=== PATIENT | female | born 1985 | race Caucasian/White ===

== ENCOUNTER 2021-02-25 10:22 | Observation (INO) ==
--- NOTE | 2021-02-25 10:58 | Emergency Department Note ---
Impression & Plan Acute appendicitis ED Provider Note CHIEF COMPLAINT: Right lower abdominal pain HISTORY OF PRESENTING ILLNESS: This is a 35-year-old female who presents to the emergency department by private vehicle with complaint of right lower abdominal pain that started this morning about 5:30 AM and woke her up from sleep. She states that the pain is crampy, constant, worse with certain movements and positions and better with rest, and she rates the pain 5/10. She has had some associated nausea but no vomiting. She denies any fevers or chills. She has had no appetite today. She does note that she recently had an ultrasound a few weeks ago and was told that she had some small cysts on her ovaries. She also recently had a surgery with biopsies on one of her ovaries. She is scheduled in 2 weeks to have an endometrial ablation. She denies any abnormal vaginal bleeding or discharge currently. She denies any urinary symptoms. She denies any diarrhea and had a normal bowel movement this morning but did feel slightly constipated. REVIEW OF SYSTEMS: A complete 10 point review of systems was reviewed with the patient with pertinent positives and negatives as per history of present ill ness. All else were negative. PAST MEDICAL HISTORY: History of wisdom tooth extraction and tonsillectomy SOCIAL HISTORY: Lives at home, she denies tobacco use ALLERGIES: No known allergies PHYSICAL EXAM: CONSTITUTIONAL: Pleasant and cooperative. Nontoxic-appearing and in no acute distress. Well appearing and well nourished. HEENT: Normocephalic, atraumatic. NECK: Supple, full active range of motion without discomfort. RESPIRATORY: Clear to auscultation bilaterally with no wheezing, crackles, rhonchi or stridor. Equal expansion bilaterally. CARDIOVASCULAR: Regular rate and rhythm with no murmurs, rubs or gallops. Normal peripheral perfusion. No edema. GASTROINTESTINAL: Tender to palpation in the right mid to lower abdomen, with slight guarding. No rebound tenderness. The remainder of the abdomen is nontender, soft and nondistended. No palpable masses or HSM. Bowel sounds present in all quadrants. No CVA tenderness bilaterally. MUSCULOSKELETAL: Full range of motion of all joints without discomfort. INTEGUMENTARY: No rash or other significant dermatologic conditions noted. NEUROLOGIC: Alert and oriented X 4 with normal affect. Normal strength and sensation in all 4 extremities. Normal speech. Normal gait observed. ED COURSE AND MEDICAL DECISION MAKING: CC: Patient presenting with complaint of right abdominal pain DIFFERENTIAL DIAGNOSIS: Includes, but not limited to ovarian cyst, ovarian torsion, ectopic , appendicitis, mesenteric adenitis, infections, diverticulitis, UTI, small bowel obstruction, mesenteric ischemia, inflammatory bowel disease, renal colic, hernia, volvulus, constipation, as well as other pathologies. INTERPRETATION OF LABS: Leukocytosis, no anemia, normal platelets, no significant electrolyte abnormalities, normal renal function, elevated T bili with otherwise normal liver enzymes and lipase. UA negative. Urine negative. MEDICATION RECONCILIATION: I attest that I have personally reviewed the patient's current medication list. INITIAL VITAL SIGNS REVIEW: I reviewed the patient's initial vital signs and in terpret them as follows: T: Afebrile; BP: Normotensive; HR: Within normal limits; RR: Within normal limits; Pulse Ox: Within normal limits on room air. MDM SUMMARY: Patient was evaluated at bedside, history and physical exam performed. Patient is alert and oriented, in no acute distress, resting calmly in stretcher. She is afebrile and nontoxic-appearing, and does not appear to be significantly dehydrated clinically. Abdomen is tender to palpation in the right lower quadrant with slight guarding, but no acute abdomen. She complains of some nausea but is not actively vomiting. Patient does note that she has been having some ovarian issues recently, records were requested and reviewed, however no recent visits were found. Given the patient's report of ovarian cyst, I did feel that it was reasonable to perform a repeat ultrasound to rule out ovarian torsion. Orders were placed for labs, UA and urine , IV fluid bolus for hydration as precaution, pelvic ultrasound to evaluate for abdominal pain. Patient discussed with Dr. Chen, who agrees with my assessment, plan, and disposition. Labs and imaging reviewed as above, labs notable for leukocytosis and elevated T bili, otherwise fairly unremarkable. Urine negative. Ultrasound was reviewed and did not demonstrate any abnormalities. The patient had persistent tenderness on reassessment, therefore CT imaging was ordered. This was reviewed and did demonstrate evidence of acute appendicitis. I spoke on the phone with Talita Brand PA-C with general surgery, who agrees to evaluate the patient for probable OR later today. The patient was updated on her results and the plan for surgery, all questions were answered to the best of my ability and she was agreeable to this plan. Patient did request something for pain at this time and was provided with IV morphine and Zofran for pain and nausea. She was stable at time of admission to the OR. The chart was completed utilizing [employer] voice recognition software. Grammatical errors, random word insertions, pronoun errors, and incomplete se ntences are an occasional consequence of this system due to software limitations, ambient noise, and hardware issues. Any formal questions or concerns about the content, text, or information contained within the body of this dictation should be directly addressed to the nurse practitioner for vitaliy courtney. Past Med/Surg History Medical History (Updated 02/25/21 @ 16:43 by URVASHI Gonzales) No significant medical problems Surgical History H/O wisdom tooth extraction History of placement of ear tubes Hx of tonsillectomy Social History Smoking Status: Never smoker Do You Dip or Chew Tobacco: No; Hx Alcohol Use: No Hx Substance Use: No Feels Safe at Home: Yes Allergies Allergies Allergy/AdvReac Type Severity Reaction Status Date / Time No Known Allergies Allergy Unverified 02/25/21 11:28 Home Meds Home Medications Medication Instructions Recorded Confirmed [id number] 18 1 tab PO QAM 02/25/21 02/25/21 mg-FA 400 mcg-vit K 25 mcg tablet (One-A-Day Women[facility] Complete) Results & Data (ED) Vital Signs Vital Signs - 24 hr 02/25/21 10:31 02/25/21 11:08 02/25/21 12:01 Temperature 37.2 C Temperature Source Oral Pulse Rate 96 H 74 75 Pulse Rate [Left Finger] Pulse Rate from SpO2 Sensor 76 Respiratory Rate 20 20 17 Respiratory Effort / Characteristics Non-Labored Spontaneous Respiratory Depth Normal Respiratory Pattern Regular Blood Pressure 103/69 Blood Pressure [Left Arm] Blood Pressure Mean 80 Blood Pressure Mean [Left Arm] Pulse Oximetry 100 100 Oxygen Delivery Method Room Air Sepsis Recent Fever Within 48 Hours No Sepsis New/Unexplained Change in Mental Status N/A Sepsis Action Taken by Nursing No Action Required 02/25/21 13:32 02/25/21 14:00 02/25/21 14:30 Temperature Temperature Source Pulse Rate 84 73 71 Pulse Rate [Left Finger] Pulse Rate from SpO2 Sensor Respiratory Rate 18 22 16 Respiratory Effort / Characteristics Respiratory Depth Respiratory Pattern Blood Pressure 96/65 L 89/63 L Blood Pressure [Left Arm] Blood Pressure Mean 75 71 Blood Pressure Mean [Left Arm] Pulse Oximetry Oxygen Delivery Method Sepsis Recent Fever Within 48 Hours Sepsis New/Unexplained Change in Mental Status Sepsis Action Taken by Nursing 02/25/21 15:29 Temperature 36.7 C Temperature Source Oral Pulse Rate Pulse Rate [Left Finger] 74 Pulse Rate from SpO2 Sensor Respiratory Rate 16 Respiratory Effort / Characteristics Respiratory Depth Normal Respiratory Pattern Blood Pressure Blood Pressure [Left Arm] 94/54 L Blood Pressure Mean Blood Pressure Mean [Left Arm] 67 Pulse Oximetry 97 Oxygen Delivery Method Sepsis Recent Fever Within 48 Hours Sepsis New/Unexplained Change in Mental Status Sepsis Action Taken by Nursing Laboratory Data Result diagrams: 02/25/21 11:04 02/25/21 11:04 Lab Results 02/25/21 02/25/21 02/25/21 Range/Units 11:04 11:04 11:04 WBC 14.06 H (4.8-10.8) K/uL RBC 4.27 (4.2-5.4) M/uL Hgb 12.7 (12.0-16.0) g/dL Hct 38.3 (37-47) % MCV 89.7 (80-100) fL MCH 29.7 (25-34) pg MCHC 33.2 (32-36) g/dL RDW Std Deviation 43.1 (36.4-46.3) fL RDW Coeff of Wilma 13.3 (11.5-14.5) % Plt Count 258 (130-400) K/uL MPV 9.5 (7.4-10.4) fL Immature Gran % (Auto) 0.2 % Neut % (Auto) 81.6 % Lymph % (Auto) 11.8 % Haines % (Auto) 5.9 % Eos % (Auto) 0.4 % Baso % (Auto) 0.1 % Neut # (Auto) 11.47 H (1.4-6.5) K/uL Lymph # (Auto) 1.66 (1.2-3.4) K/uL Haines # (Auto) 0.83 H (0.11-0.59) K/uL Eos # (Auto) 0.06 (0-0.5) K/uL Baso # (Auto) 0.01 (0-0.2) K/uL Immature Gran # (Auto) 0.03 H (0.00-0.02) K/uL Sodium 140 (136-145) mmol/L Potassium 3.5 (3.5-5.1) mmol/L Chloride 106 (98-107) mmol/L Carbon Dioxide 28 (21-32) mmol/L Anion Gap 6.0 (3-11) BUN 11 (7-18) mg/dl Creatinine 0.70 (0.6-1.2) mg/dl Est Cr Clr Drug Dosing 94.4 ml/min Est GFR ( Amer) 131.9 ml/min Est GFR (Non-Af Amer) 113.8 ml/min BUN/Creatinine Ratio 15.5 (10-20) Glucose 81 (70-99) mg/dl Calcium 8.9 (8.5-10.1) mg/dl Total Bilirubin 1.6 H (0.2-1) mg/dl AST 14 L (15-37) U/L ALT 24 (12-78) U/L Alkaline Phosphatase 54 (45-117) U/L Total Protein 7.9 (6.4-8.2) gm/dl Albumin 4.2 (3.4-5.0) gm/dl Globulin 3.7 (2.5-4.0) gm/dl Albumin/Globulin Ratio 1.1 (0.9-2) Lipase 74 (73-393) U/L Urine Color [place] Urine Appearance Clear (Clear) Urine pH 7.0 (4.5-7.5) Ur Specific [place] 1.008 (1.000-1.030) Urine Protein Negative (Negative) Urine Glucose (UA) Negative (Negative) Urine Ketones Negative (Negative) Urine Blood Negative (Negative) Urine Nitrite Negative (Negative) Urine Bilirubin Negative (Negative) Urine Urobilinogen Negative (Negative) Ur Leukocyte Esterase Negative (Negative) POC Ur Test (NEG) COVID-19 Eval Order SARS-CoV-2 (PCR) (Negative) 02/25/21 02/25/21 02/25/21 Range/Units 11:04 13:35 13:35 WBC (4.8-10.8) K/uL RBC (4.2-5.4) M/uL Hgb (12.0-16.0) g/dL Hct (37-47) % MCV (80-100) fL MCH (25-34) pg MCHC (32-36) g/dL RDW Std Deviation (36.4-46.3) fL RDW Coeff of Wilma (11.5-14.5) % Plt Count (130-400) K/uL MPV (7.4-10.4) fL Immature Gran % (Auto) % Neut % (Auto) % Lymph % (Auto) % Haines % (Auto) % Eos % (Auto) % Baso % (Auto) % Neut # (Auto) (1.4-6.5) K/uL Lymph # (Auto) (1.2-3.4) K/uL Haines # (Auto) (0.11-0.59) K/uL Eos # (Auto) (0-0.5) K/uL Baso # (Auto) (0-0.2) K/uL Immature Gran # (Auto) (0.00-0.02) K/uL Sodium (136-145) mmol/L Potassium (3.5-5.1) mmol/L Chloride (98-107) mmol/L Carbon Dioxide (21-32) mmol/L Anion Gap (3-11) BUN (7-18) mg/dl Creatinine (0.6-1.2) mg/dl Est Cr Clr Drug Dosing ml/min Est GFR ( Amer) ml/min Est GFR (Non-Af Amer) ml/min BUN/Creatinine Ratio (10-20) Glucose (70-99) mg/dl Calcium (8.5-10.1) mg/dl Total Bilirubin (0.2-1) mg/dl AST (15-37) U/L ALT (12-78) U/L Alkaline Phosphatase (45-117) U/L Total Protein (6.4-8.2) gm/dl Albumin (3.4-5.0) gm/dl Globulin (2.5-4.0) gm/dl Albumin/Globulin Ratio (0.9-2) Lipase (73-393) U/L Urine Color Urine Appearance (Clear) Urine pH (4.5-7.5) Ur Specific [place] (1.000-1.030) Urine Protein (Negative) Urine Glucose (UA) (Negative) Urine Ketones (Negative) Urine Blood (Negative) Urine Nitrite (Negative) Urine Bilirubin (Negative) Urine Urobilinogen (Negative) Ur Leukocyte Esterase (Negative) POC Ur Test NEG (NEG) COVID-19 Eval Order Covid19 at [facility] SARS-CoV-2 (PCR) NEGATIVE (Negative) Administered Medications Discontinued Medications Bacitracin (Bacitracin Oint 15 Gm Tube) Confirm Administered Dose 45 appln .ROUTE .STK-MED ONE Stop: 02/25/21 15:25 Last Admin: 02/25/21 16:37 Dose: 1 appln Documented by: Bupivacaine HCl (Bupivacaine 0.5 % 5 Mg/1 Ml Mpf 30ml Vial) Confirm Administered Dose 30 ml .ROUTE .STK-MED ONE Stop: 02/25/21 15:26 Last Admin: 02/25/21 16:37 Dose: 12 ml Documented by: Sodium Chloride (Nss 1000ml) 1,000 mls @ 999 mls/hr IV .Q1H1M STA Stop: 02/25/21 12:07 Last Infusion: 02/25/21 12:24 Dose: 0 mls/hr Documented by: [id number] Admin: 02/25/21 11:24 Dose: 999 mls/hr Documented by: [id number] Ioversol (Optiray 320 100ml) 95 ml IV ONCE ONE Stop: 02/25/21 12:19 Last Admin: 02/25/21 12:18 Dose: 95 ml Documented by: [id number] Lidocaine HCl (Lidocaine 1% Local 20 Ml Vial) Confirm Administered Dose 20 ml .ROUTE .STK-MED ONE Stop: 02/25/21 15:26 Last Admin: 02/25/21 16:35 Dose: 12 ml Documented by: Morphine Sulfate (Morphine Sulfate 4 Mg/Ml 1 Ml Carp\Vial) 4 mg IV NOW STA Stop: 02/25/21 13:31 Last Admin: 02/25/21 13:35 Dose: 4 mg Documented by: [id number] Ondansetron HCl (Ondansetron Inj 2 Mg/Ml 2 Ml Vial) 4 mg IV NOW STA Stop: 02/25/21 13:31 Last Admin: 02/25/21 13:35 Dose: 4 mg Documented by: [id number] Imaging Data Radiologist's Impression: Pelvis Ultrasound 02/25/21 11:07 ULTRASOUND OF THE PELVIS CLINICAL HISTORY: Right pelvic pain. COMPARISON STUDY: No priors. TECHNIQUE: Real-time, grayscale, and color flow sonography of the pelvis is performed transabdominally. Images are reviewed in the transverse and longitudinal planes. The endovaginal examination was deferred. FINDINGS: Uterus: The uterus is normal in size and echotexture, measuring 7.5 x 4.3 x 4.6 cm. Endometrium: The endometrium is normal in appearance, and the endometrial stripe is normal in thickness measuring up to 0.3 cm. Ovaries: The ovaries are normal in size and morphology. The right ovary measures 2.7 x 2.3 x 3.7 cm and the left ovary measures 2.1 x 1.5 x 1.9 cm. There are small bilateral ovarian follicles. A complex follicle in the right ovary measures up to 2.7 cm. Normal Doppler waveforms are shown within both ovaries. Pelvis: There is no free fluid in the cul-de-sac. No concerning adnexal lesion is seen. IMPRESSION: Unremarkable transabdominal sonographic assessment of the pelvis. ACT 112: Negative or not required by law. Electronically signed by: Domenico Eller M.D. 02/25/2021 11:58 AM Abdomen/Pelvis CT 02/25/21 12:09 CT SCAN OF THE ABDOMEN AND PELVIS WITH IV CONTRAST CLINICAL HISTORY: Right lower quadrant abdominal pain. Nausea and dizziness. COMPARISON STUDY: Pelvic ultrasound dated 02/25/2021. TECHNIQUE: Following the IV administration of 95 cc of Optiray 320, CT scan of the abdomen and pelvis is performed from the lung bases to the proximal femora. Images are reviewed in the axial, sagittal, and coronal planes. IV contrast was administered without complication. A dose lowering technique was utilized adhering to the principles of ALARA. CT DOSE: 261.50 mGy.cm FINDINGS: Lung bases: The heart is normal in size and without pericardial effusion. The lung bases are clear. Liver: The contrast-enhanced liver is normal in size, contour, and attenuation. There is no intrahepatic biliary ductal dilatation. The hepatic veins and portal veins are patent. Mild periportal edema is noted and likely related to hydration status. Gallbladder: Unremarkable. Spleen: Normal in size and attenuation. Pancreas: Unremarkable. Adrenal glands: Unremarkable. Kidneys: The contrast enhanced kidneys are normal in size and without hydronephrosis. The kidneys enhance symmetrically. Abdominal vasculature: The abdominal aorta is normal in course and caliber. Bowel: Mild fecal retention is seen throughout the colon. There is no bowel obstruction. The cecum is located in the right mid abdomen below the liver. The appendix is located immediately lateral to and below the right kidney, best seen on axial image #206. The appendix is mildly dilated measuring up to 7.5 mm. The appendiceal wall is thickened and hyperemic and there is mild surrounding infiltration. Findings are consistent with mild acute appendicitis. No organized fluid collection is seen to indicate abscess. Peritoneum: There is no intraperitoneal free air or abdominal ascites. Lymphadenopathy: None. Pelvic viscera: The bladder is distended but otherwise normal in appearance. The uterus and adnexa are normal as visualized noting bilateral ovarian follicles. Skeletal structures: No lytic or blastic lesions are seen. IMPRESSION: 1. Findings are consistent with mild acute appendicitis. Note that the cecum is located in the right mid abdomen, with the appendix seen immediately lateral to and below the right kidney. 2. There is no evidence of abscess or perforation. ACT 112: Negative or not required by law. Electronically signed by: Domenico Eller M.D. 02/25/2021 12:33 PM Discharge Plan Visit Data Chief Complaint: Abdominal Pain Stated Complaint: STOMACH PAIN, NAUSEOUS ED Provider: Vera Chen ED Midlevel Provider: Jaimee Matt Discharge Problem: Acute appendicitis Patient Disposition: Admitted As Inpatient Condition: Good Discharge Instructions Interventions: ED Discharge Assessment Last Done: 02/25/21 14:41 Discharge Problem: Acute appendicitis Qualifiers: Acute appendicitis type: with localized peritonitis Appendicitis gangrene presence: without gangrene Appendicitis perforation presence: without perforation Appendicitis abscess presence: without abscess Qualified Code(s): K35.30 - Acute appendicitis with localized peritonitis, without perforation or gangrene
[2021-02-25] MEDS ORDERED: SODIUM CHLORIDE 0.9% 1000ML 1,000 ML IV STA (11:07)
[2021-02-25 11:25] LABS: Basophils # (auto) 0.01 K/uL (0-0.2); Basophils % (auto) 0.1 %; Eosinophils # (auto) 0.06 K/uL (0-0.5); Eosinophils % (auto) 0.4 %; Hematocrit (blood only) 38.3 % (37-47); Hemoglobin 12.7 g/dL (12.0-16.0); Immature Granulocytes # (auto) 0.03 K/uL (0.00-0.02); Immature Granulocytes % (auto) 0.2 %; Lymphocytes # (auto) 1.66 K/uL (1.2-3.4); Lymphocytes % (auto) 11.8 %; Mean Corpuscular Hemoglobin 29.7 pg (25-34); Mean Corpuscular Hgb Conc 33.2 g/dL (32-36); Mean Corpuscular Volume 89.7 fL (80-100); Mean Platelet Volume 9.5 fL (7.4-10.4); Monocytes # (auto) 0.83 K/uL (0.11-0.59); Monocytes % (auto) 5.9 %; Neutrophils # (auto) 11.47 K/uL (1.4-6.5); Neutrophils % (auto) 81.6 %; Platelet Count 258 K/uL (130-400); RDW Coefficient of Variation 13.3 % (11.5-14.5); RDW Standard Deviation 43.1 fL (36.4-46.3); Red Blood Count 4.27 M/uL (4.2-5.4); White Blood Count 14.06 K/uL (4.8-10.8)
[2021-02-25 11:26] LABS: Appearance Urine Clear (Clear); Bilirubin Urine Negative (Negative); Blood Urine Negative (Negative); Color Urine Orange; Glucose Urine UA Negative (Negative); Ketones Urine Negative (Negative); Leukocyte Esterase Urine Negative (Negative); Nitrite Urine Negative (Negative); Protein Urine Negative (Negative); Specific Gravity Urine 1.008 (1.000-1.030); Urobilinogen Urine Negative (Negative)
[2021-02-25 11:44] LABS: Albumin Level 4.2 gm/dl (3.4-5.0); BUN Creatinine Ratio 15.5 (10-20); Calcium 8.9 mg/dl (8.5-10.1); Creatinine Clr Calc Pharmacy 94.4 ml/min; Est GFR (African American) 131.9 ml/min; Est GFR (Non-African American) 113.8 ml/min; Potassium 3.5 mmol/L (3.5-5.1)
[2021-02-25 11:47] LABS: Albumin Globulin Ratio 1.1 (0.9-2); Bilirubin,Total 1.6 mg/dl (0.2-1); Globulin 3.7 gm/dl (2.5-4.0); Total Protein 7.9 gm/dl (6.4-8.2)
--- NOTE | 2021-02-25 11:59 | Ultrasound Report ---
ULTRASOUND OF THE PELVIS CLINICAL HISTORY: Right pelvic pain. COMPARISON STUDY: No priors. TECHNIQUE: Real-time, grayscale, and color flow sonography of the pelvis is performed transabdominall y. Images are reviewed in the transverse and longitudinal planes. The endovaginal examination was def erred. FINDINGS: Uterus: The uterus is normal in size and echotexture, measuring 7.5 x 4.3 x 4.6 cm. Endometrium: The endometrium is normal in appearance, and the endometrial stripe is normal in thickne ss measuring up to 0.3 cm. Ovaries: The ovaries are normal in size and morphology. The right ovary measures 2.7 x 2.3 x 3.7 cm a nd the left ovary measures 2.1 x 1.5 x 1.9 cm. There are small bilateral ovarian follicles. A complex follicle in the right ovary measures up to 2.7 cm. Normal Doppler waveforms are shown within both ov paxton. Pelvis: There is no free fluid in the cul-de-sac. No concerning adnexal lesion is seen. IMPRESSION: Unremarkable transabdominal sonographic assessment of the pelvis. ACT 112: Negative or not required by law. Electronically signed by: Domenico Eller M.D. 02/25/2021 11:58 AM
[2021-02-25] MEDS ORDERED: OPTIRAY 320 100ml IV ONE (12:18)
--- NOTE | 2021-02-25 12:35 | CT Scan Report ---
CT SCAN OF THE ABDOMEN AND PELVIS WITH IV CONTRAST CLINICAL HISTORY: Right lower quadrant abdominal pain. Nausea and dizziness. COMPARISON STUDY: Pelvic ultrasound dated 02/25/2021. TECHNIQUE: Following the IV administration of 95 cc of Optiray 320, CT scan of the abdomen and pelvi s is performed from the lung bases to the proximal femora. Images are reviewed in the axial, sagittal , and coronal planes. IV contrast was administered without complication. A dose lowering technique wa s utilized adhering to the principles of ALARA. CT DOSE: 261.50 mGy.cm FINDINGS: Lung bases: The heart is normal in size and without pericardial effusion. The lung bases are clear. Liver: The contrast-enhanced liver is normal in size, contour, and attenuation. There is no intrahepa tic biliary ductal dilatation. The hepatic veins and portal veins are patent. Mild periportal edema i s noted and likely related to hydration status. Gallbladder: Unremarkable. Spleen: Normal in size and attenuation. Pancreas: Unremarkable. Adrenal glands: Unremarkable. Kidneys: The contrast enhanced kidneys are normal in size and without hydronephrosis. The kidneys enh ance symmetrically. Abdominal vasculature: The abdominal aorta is normal in course and caliber. Bowel: Mild fecal retention is seen throughout the colon. There is no bowel obstruction. The cecum is located in the right mid abdomen below the liver. The appendix is located immediately lateral to an d below the right kidney, best seen on axial image #206. The appendix is mildly dilated measuring up to 7.5 mm. The appendiceal wall is thickened and hyperemic and there is mild surrounding infiltration . Findings are consistent with mild acute appendicitis. No organized fluid collection is seen to luciano roberto abscess. Peritoneum: There is no intraperitoneal free air or abdominal ascites. Lymphadenopathy: None. Pelvic viscera: The bladder is distended but otherwise normal in appearance. The uterus and adnexa ar e normal as visualized noting bilateral ovarian follicles. Skeletal structures: No lytic or blastic lesions are seen. IMPRESSION: 1. Findings are consistent with mild acute appendicitis. Note that the cecum is located in the right mid abdomen, with the appendix seen immediately lateral to and below the right kidney. 2. There is no evidence of abscess or perforation. ACT 112: Negative or not required by law. Electronically signed by: Domenico Eller M.D. 02/25/2021 12:33 PM
[2021-02-25] MEDS ORDERED: MoRPHine SULFATE 4 MG/ML 1 ML CARP\\VIAL IV STA (13:30)
[2021-02-25] MEDS ORDERED: ONDANSETRON INJ 2 MG/ML 2 ML VIAL IV STA (13:30)
--- NOTE | 2021-02-25 14:12 | Surgery Consultation ---
Date of Consultation February 25, 2021 Assessment & Plan (1) Acute appendicitis: Present on Admission?: Yes pt is a 35 year-old female who presents to ER with one day history RLQ pain, CT scan diagnosis- acute appendicitis, IMP: acute appendicitis, plan, I recommend to do laparoscopic appendectomy, possible open, D/W benefits, risks nad alternatives of the surgery, the risks - infection, bleeding, injury other organs, abscess, bowel obstruction, pt understood, she agrees with the surgery, I answered all questions, pre-op antibiotic, History of Present Illness Reason for Consultation: acute appendicitis Requesting Physician: Aba Saini MD Attending Physician: Francisco Tineo MD History of Present Illness CC: RLQ pain HPI: pt is a 35 year-old female who presents to Er with one day history RLQ pain with nausea, no vomiting, the pain is 10/10, located at RLQ, pt denies fever, no diarrhea, pt had CT scan diagnosis- acute appendicitis, Allergies Allergy/AdvReac Type Severity Reaction Status Date / Time No Known Allergies Allergy Unverified 02/25/21 11:28 Home Medications Medication Instructions Recorded Confirmed Type zzadeqbe-aekxmxq-whuv-iron 18 1 tab PO QAM 02/25/21 02/25/21 History mg-FA 400 mcg-vit K 25 mcg tablet (One-A-Day Women's Complete) Patient History Social History Smoking Status: Never smoker Feels Safe at Home: Yes Review of Systems Review of Systems: All systems reviewed & are unremarkable except as noted in HPI & below Constitutional: as per Subjective / HPI Eyes: as per Subjective / HPI Respiratory: as per Subjective / HPI Cardiovascular: as per Subjective / HPI Gastrointestinal: as per Subjective / HPI Genitourinary: [employer] biopsy procedure 1 week result pending, Musculoskeletal: as per Subjective / HPI Neurologic: as per Subjective / HPI Psychiatric: as per Subjective / HPI Endocrine: as per Subjective / HPI Hematologic / Lymphatic: as per Subjective / HPI Physical Exam Constitutional: WD/WN, vitals as above Eyes: PERRL, conjunctivae normal, anicteric sclerae Neck: trachea midline, no thyromegaly Respiratory: normal respiratory effort, lungs clear to auscultation Cardiovascular: RRR, no murmur, no edema Gastrointestinal (Abdomen): soft, tenderness at RLQ, no rebound pain, no distend, BS + Musculoskeletal: no cyanosis or clubbing, extremities motor strength 5/5 Neurologic: patellar DTR's 2+ bilat, sensation intact Psychiatric: A+Ox3, euthymic affect Results & Data ([facility]) Vital Signs (Past 12 Hours) Vital Signs Temp Pulse Resp BP Pulse Ox 02/25/21 12:01 75 17 100 02/25/21 11:08 74 20 02/25/21 10:31 37.2 C 96 H 20 103/69 100 Laboratory Results Abnormal lab results 02/25/21 02/25/21 Range/Units 11:04 11:04 WBC 14.06 H (4.8-10.8) K/uL Neut # (Auto) 11.47 H (1.4-6.5) K/uL [place] # (Auto) 0.83 H (0.11-0.59) K/uL Immature Gran # (Auto) 0.03 H (0.00-0.02) K/uL Total Bilirubin 1.6 H (0.2-1) mg/dl AST 14 L (15-37) U/L Diagnostic Findings CT SCAN OF THE ABDOMEN AND PELVIS WITH IV CONTRAST CLINICAL HISTORY: Right lower quadrant abdominal pain. Nausea and dizziness. COMPARISON STUDY: Pelvic ultrasound dated 02/25/2021. TECHNIQUE: Following the IV administration of 95 cc of Optiray 320, CT scan of the abdomen and pelvis is performed from the lung bases to the proximal femora. Images are reviewed in the axial, sagittal, and coronal planes. IV contrast was administered without complication. A dose lowering technique was utilized adhering to the principles of ALARA. CT DOSE: 261.50 mGy.cm FINDINGS: Lung bases: The heart is normal in size and without pericardial effusion. The lung bases are clear. Liver: The contrast-enhanced liver is normal in size, contour, and attenuation. There is no intrahepatic biliary ductal dilatation. The hepatic veins and portal veins are patent. Mild periportal edema is noted and likely related to hydration status. Gallbladder: Unremarkable. Spleen: Normal in size and attenuation. Pancreas: Unremarkable. Adrenal glands: Unremarkable. Kidneys: The contrast enhanced kidneys are normal in size and without hydronephrosis. The kidneys enhance symmetrically. Abdominal vasculature: The abdominal aorta is normal in course and caliber. Bowel: Mild fecal retention is seen throughout the colon. There is no bowel obstruction. The cecum is located in the right mid abdomen below the liver. The appendix is located immediately lateral to and below the right kidney, best seen on axial image #206. The appendix is mildly dilated measuring up to 7.5 mm. The appendiceal wall is thickened and hyperemic and there is mild surrounding infiltration. Findings are consistent with mild acute appendicitis. No organized fluid collection is seen to indicate abscess. Peritoneum: There is no intraperitoneal free air or abdominal ascites. Lymphadenopathy: None. Pelvic viscera: The bladder is distended but otherwise normal in appearance. The uterus and adnexa are normal as visualized noting bilateral ovarian follicles. Skeletal structures: No lytic or blastic lesions are seen. IMPRESSION: 1. Findings are consistent with mild acute appendicitis. Note that the cecum is located in the right mid abdomen, with the appendix seen immediately lateral to and below the right kidney. 2. There is no evidence of abscess or perforation.
[2021-02-25] MEDS ORDERED: cefOXitin 2,000 MG/60 ML BAG IV STA (14:17)
--- NOTE | 2021-02-25 14:17 | History & Physical Bridge Note ---
Date of Service February 25, 2021 History & Physical Bridge Note I have examined the patient, reviewed the History & Physical and in the interval since the performance of the History & Physical I have noted the following changes of clinical significance: no changes noted
[2021-02-25] MEDS ORDERED: ONDANSETRON INJ 2 MG/ML 2 ML VIAL IV PRN ×2 (14:58→16:53)
[2021-02-25] MEDS ORDERED: HYDROmorphone INJ 1 MG/ML SYRINGE IV PRN (14:58)
[2021-02-25] MEDS ORDERED: ATROPINE SULFATE 0.1 MG/ML 10ML SYR IV PRN (14:58)
[2021-02-25] MEDS ORDERED: fentaNYL citrate 100 MCG/2 ML VIAL IV PRN (14:58)
[2021-02-25] MEDS ORDERED: ePHEDrine sulfate 50 MG/ML AMP IV PRN (14:58)
--- NOTE | 2021-02-25 14:59 | Anesthesiology Consultation ---
Date of Service February 25, 2021 Assessment & Plan (1) Encounter for pre-operative examination: Chart Review Chart Review: Acceptable Risk for Surgery and Patient NOT seen in Pre Admission Testing Consults Requested none History Surgery Operation Date: 02/25/21 09:50 Proposed Procedures p Laparoscopic Appendectomy - Francisco Tineo MD Height/Weight Height: 5 ft 4 in Weight: 52.3 kg Allergies Allergy/AdvReac Type Severity Reaction Status Date / Time No Known Allergies Allergy Unverified 02/25/21 11:28 Medications Home Medications Medication Instructions Recorded Confirmed Last Taken qhaqcgxq-zqublxh-vldm-iron 18 1 tab PO QAM 02/25/21 02/25/21 02/23/21 mg-FA 400 mcg-vit K 25 mcg tablet (One-A-Day Women's Complete) Past Medical History Medical History (Updated 02/25/21 @ 15:13 by Brent Almaguer MD) No significant medical problems Exercise / Class Metabolic Activity II 4-5 Yardwork/Stairs/Walk up hill Past Surgical History Surgical History H/O wisdom tooth extraction History of placement of ear tubes Hx of tonsillectomy Past Anesthesia History No Hx of Anesthesia Complications and No Family Hx of Anesthesia Complications History of PONV No Hx of PONV and No Hx of Motion Sickness Social History Smoking Status: Never smoker Do You Dip or Chew Tobacco: No Hx Alcohol Use: No Hx Substance Use: No Physical Exam Vital Signs Last Vital Signs Temp 37.2 C 02/25/21 10:31 Pulse 71 02/25/21 14:30 Resp 16 02/25/21 14:30 BP 89/63 L 02/25/21 14:30 Pulse Ox 100 02/25/21 12:01 Testing Laboratory Results 02/25/21 11:04 02/25/21 11:04 Urine Color [place] 02/25/21 11:04 Urine Appearance Clear (Clear) 02/25/21 11:04 Urine pH 7.0 (4.5-7.5) 02/25/21 11:04 Ur Specific [place] 1.008 (1.000-1.030) 02/25/21 11:04 Urine Protein Negative (Negative) 02/25/21 11:04 Urine Glucose (UA) Negative (Negative) 02/25/21 11:04 Urine Ketones Negative (Negative) 02/25/21 11:04 Urine Nitrite Negative (Negative) 02/25/21 11:04 Ur Leukocyte Esterase Negative (Negative) 02/25/21 11:04 02/25/21 11:04 POC Ur Test NEG
[2021-02-25] MEDS ORDERED: BACITRACIN OINT 15 GM TUBE ONE (15:24)
[2021-02-25] MEDS ORDERED: MIDAZOLAM HCL 1 MG/ML 2ML VIAL ONE (15:25)
[2021-02-25] MEDS ORDERED: PROPOFOL IV EMULSION 10 MG/ML 20 ML VIAL IV ONE (15:25)
[2021-02-25] MEDS ORDERED: LIDOCAINE 2% 2 ML VIAL/AMP(20MG/ML) INFIL ONE (15:25)
[2021-02-25] MEDS ORDERED: ROCURONIUM BROMIDE 10 MG/ML 5 ML VIAL IV ONE (15:25)
[2021-02-25] MEDS ORDERED: NEOSTIGMINE METHYLSULFATE 1 MG/ML 10ML VIAL ONE (15:25)
[2021-02-25] MEDS ORDERED: LARYING-O-JET KIT (LTA) ONE (15:25)
[2021-02-25] MEDS ORDERED: fentaNYL citrate 100 MCG/2 ML VIAL ONE (15:25)
[2021-02-25] MEDS ORDERED: DEXAMETHASONE SOD INJ 4 MG/ML VIAL ONE (15:25)
[2021-02-25] MEDS ORDERED: LIDOCAINE 1% LOCAL 20 ML VIAL ONE (15:25)
[2021-02-25] MEDS ORDERED: GLYCOPYRROLATE 0.2 MG/ML VIAL ONE (15:25)
[2021-02-25] MEDS ORDERED: ONDANSETRON INJ 2 MG/ML 2 ML VIAL ONE (15:25)
[2021-02-25] MEDS ORDERED: BUPIVACAINE 0.5 % 5 MG/1 ML MPF 30ML VIAL ONE (15:25)
[2021-02-25] MEDS ORDERED: ePHEDrine sulfate 50 MG/ML SYR ONE (16:09)
[2021-02-25] MEDS ORDERED: KETOROLAC 30 MG/ML VIAL ONE (16:10)
--- NOTE | 2021-02-25 16:45 | Post Operative Brief Note ---
Immediate Post Op Note v1 Date of Surgery February 25, 2021 Pre & Post Diagnosis Operation Date: 02/25/21 09:50 Pre-Op Diagnosis: Acute appendicitis Post-Op Diagnosis: Acute appendicitis I identified the patient and participated in the time-out.: Yes Procedure Operation Date: 02/25/21 09:50 Actual Procedures p Laparoscopic Appendectomy(Not Applicable) - Francisco Tineo MD Surgeon Francisco Tineo MD Director Of Learning surgical lead Estimated Blood Loss 10 Findings Consistent with Post-Op Diagnosis Fluids 1000ml Specimens appendix Anesthesia Type General Complications none Disposition Accompanied Patient To Recovery: Yes
--- NOTE | 2021-02-25 17:38 | Anesthesiology Progress Note ---
Date of Service February 25, 2021 Anesthesia Post Procedure Vital Signs Vital Signs: Temp Pulse Pulse Resp BP BP Pulse Ox 02/25/21 17:30 36.6 C 58 L 16 95/61 L 100 02/25/21 17:20 61 16 94/64 L 99 02/25/21 17:10 62 16 99/64 L 100 02/25/21 17:00 58 L 16 90/54 L 99 02/25/21 16:52 36.8 C 64 16 84/50 L 100 02/25/21 15:29 36.7 C 74 16 94/54 L 97 02/25/21 14:30 71 16 89/63 L 02/25/21 14:00 73 22 96/65 L 02/25/21 13:32 84 18 02/25/21 12:01 75 17 100 02/25/21 11:08 74 20 02/25/21 10:31 37.2 C 96 H 20 103/69 100 Pain Intensity Abdomen: Pain Intensity: 7 Transfer of Care Handoff Completed per policy Notes Mental Status: alert / awake / arousable Patient Amnestic to Procedure: Yes Nausea / Vomiting: adequately controlled Pain: adequately controlled Airway Patency, RR, SpO2: stable & adequate BP & HR: stable & adequate Hydration State: stable & adequate Anesthetic Complications: no major complications apparent
[2021-02-25] MEDS ORDERED: HYDROmorphone INJ 0.5 MG/0.5 ML SYR IV PRN (18:31)
[2021-02-25] MEDS: LACTATED RINGER'S 1,000 ML IV SCH (19:01)
[2021-02-25] MEDS: oxyCODONE/ACETAMINOPHEN 5mg/325mg TAB PO PRN (20:25)
[2021-02-26] MEDS: oxyCODONE/ACETAMINOPHEN 5mg/325mg TAB PO PRN ×2 (00:09→07:58)
--- NOTE | 2021-02-26 02:15 | Operative Report (OR) ---
DATE OF PROCEDURE: 02/25/2021. PREOPERATIVE DIAGNOSIS: Acute appendicitis. POSTOPERATIVE DIAGNOSIS: Acute appendicitis. OPERATION: Laparoscopic appendectomy. SURGEON: Francisco Tineo MD ANESTHESIA: General. ESTIMATED BLOOD LOSS: About 10 mL. FINDINGS: Acute appendicitis. COMPLICATIONS: None. INDICATIONS FOR PROCEDURE: This is a 35-year-old female who presented to the ED with acute abdominal pain. The patient had a CT scan diagnosis of acute appendicitis. I recommended to do laparoscopic appendectomy, possible open. I did talk to the patient about the benefits, risks, and alternative pr ocedures. I indicated the risks may include, but not limited, such as bleeding, infection, injury to other organs, abscess, bowel obstruction, incisional hernia. The patient understood and she signed informed consent. I answered all questions. DETAILS OF PROCEDURE: After we identified the patient and verified the procedure, we brought in the patient to the OR and put the patient in the supine position on the OR table. The patient received S CDs on bilateral legs to prevent DVT. Also, the patient received 2 grams cefoxitin IV for prophylact ic antibiotic. The patient received general anesthesia without difficulty. The abdomen was prepped and draped in routine sterile fashion. After timeout, I injected the local anesthesia by using 1% li docaine mixed with 0.5% Marcaine just above the umbilicus. Then we made a small incision just above the umbilicus, opened fascia, opened peritoneum. Under direct vision, put a Dioni trocar in, connec fernando to CO2 to create pneumoperitoneum, flow rate at 6 liters per minute, pressure not more than 14 mm Hg. Once we got a nice pneumoperitoneum, we put a camera in, looked around the abdomen and it showed normal finding on the small bowel and large bowel. At this moment, we put another two 5 mm trocars on the left lower quadrant area. We mobilized the cecum and then we found the patient had acute appe ndicitis located in the posterior cecum, so we mobilized the appendiceal by the Harmonic. Rechecked, no active bleeding. We chose 45 mm Endo-JUANI stapler for transection on the base of the appendix, re checked the staple line, intact and no active bleeding, no leak. Then we removed the appendix throug h the catch bag. Then we reinserted the Dioni trocar in, connected to CO2 to create pneumoperitoneum, again looked ar ound the abdomen. The staple line intact and no leak, no active bleeding. Then we removed all troca rs under direct vision. No active bleeding from the trocar site. Pneumoperitoneum was released. en I closed the umbilical incision fascial layer by using 0 Vicryl [id number]-[id number] x2, closed subcuta neous layer by using 2-0 Vicryl interruptedly, closed skin by using 4-0 Vicryl continuous running, cl osed another two 5 mm trocar sites skin only by using 4-0 Vicryl. Then we put the dressing on. The patient tolerated the procedure well. All instrument, needle, sponge counts were correct x2 at the e nd of the case. The patient was transferred to recovery room in stable condition. The specimen was sent to pathology. After procedure, I did talk to the patient about the OR finding and the procedure we did, the patient understands. Job ID: [id number]
[2021-02-26] MEDS: LACTATED RINGER'S 1,000 ML IV SCH (06:05)
[2021-02-26 07:23] LABS: Basophils # (auto) 0.01 K/uL (0-0.2); Basophils % (auto) 0.1 %; Eosinophils # (auto) 0.06 K/uL (0-0.5); Eosinophils % (auto) 0.6 %; Hematocrit (blood only) 30.8 % (37-47); Hemoglobin 10.1 g/dL (12.0-16.0); Immature Granulocytes # (auto) 0.02 K/uL (0.00-0.02); Immature Granulocytes % (auto) 0.2 %; Lymphocytes # (auto) 1.58 K/uL (1.2-3.4); Lymphocytes % (auto) 16.8 %; Mean Corpuscular Hgb Conc 32.8 g/dL (32-36); Mean Corpuscular Volume 88.5 fL (80-100); Mean Platelet Volume 9.7 fL (7.4-10.4); Monocytes # (auto) 0.56 K/uL (0.11-0.59); Monocytes % (auto) 5.9 %; Neutrophils # (auto) 7.19 K/uL (1.4-6.5); Neutrophils % (auto) 76.4 %; Platelet Count 221 K/uL (130-400); RDW Coefficient of Variation 13.2 % (11.5-14.5); RDW Standard Deviation 42.5 fL (36.4-46.3); Red Blood Count 3.48 M/uL (4.2-5.4); White Blood Count 9.42 K/uL (4.8-10.8)
[2021-02-26] MEDS ORDERED: MULTIVITAMIN TAB PO SCH (09:00)
--- NOTE | 2021-02-26 09:45 | Discharge Summary ---
Date of Service February 26, 2021 Admission HPI Per Admitting Provider HPI: pt is a 35 year-old female who presents to Er with one day history RLQ pain with nausea, no vomiting, the pain is 10/10, located at RLQ, pt denies fever, no diarrhea, pt had CT scan diagnosis- acute appendicitis, Principal Diagnosis Acute appendicitis Discharge Exam Constitutional WD/WN, vitals as above Respiratory normal respiratory effort; no respiratory distress, no labored breathing and no retractions Gastrointestinal (Abdomen) Inspection/Auscultation: abdomen normal to inspection and + abdominal surgical incision (covered with dry intact dressings); abdomen not distended Percussion/Palpation: + abdomen tender (at incision sites) and abdomen soft; no guarding and abdomen not rigid Skin no rashes, warm and dry Psychiatric A+Ox3, euthymic affect Discharge Data Allergies Allergy/AdvReac Type Severity Reaction Status Date / Time No Known Allergies Allergy Unverified 02/25/21 11:28 Consultations 02/25/21 13:18 ED Decision to Admit Stat Procedures Performed Operation Date: 02/25/21 09:50 Actual Procedures p Laparoscopic Appendectomy(Not Applicable) - Francisco Summers MD Ordered Studies 02/25/21 11:07 US pelvic complete Stat 02/25/21 12:09 CT abd pelvis IV con only Stat Hospital Course (1) Acute appendicitis: Patient was taken to operating room for laparoscopic appendectomy by Dr. summers. Patient found to have acute appendicitis without perforation or abscess. Transferred to medical/surgical floor for postoperative care. Diet advanced to clear liquids, IV Dilaudid and po Percocet prn pain, antiemetics prn nausea, activity as tolerated, IV Cefoxitin for postop antibiotic. POD # 1 afebrile, vitals stable, preop pain resolved, leukocytosis resolved. No nausea or vomiting. Pain controlled with po Percocet. Patient was discharged home on POD # 1 in stable condition. Total Time Total Time Spent Total Time Spent (In Minutes): 20 Total Time Includes: Examination of the Patient, Discharge Planning and Medication Reconciliation Discharge Plan Discharge Items Patient Disposition: Home - Self-Care Reason For Visit: ABDOMINAL PAIN Discharge Diagnosis: Acute appendicitis Condition on Discharge: Good Activity: Per Instructions section Non-emergency contact: Surgeon Call non-emergency contact if: you have any medication questions, your pain is not controlled, your pain is worsening, you have a fever, your temperature is above 101, your wound has increased redness, your wound has increased drainage and your wound pain has increased Follow-up/Referrals: Francisco Summers MD [Physician] - 03/14/21 8:45 am (You will be seeing Talita Brand) PCP,NO [Physician] - Diet: Regular Addtl Attending Provider Instructions: Post-Surgical ~Discharge Instructions Activity Recommendations: - lifting limitation: (25 pounds for 4 weeks), - exercise/sex/sports limit: (nonstrenuous for 2 weeks), - driving or machine use limit: (none for 1 week or until pain free and no longer taking narcotic pain medication), - Shower/bathe limit: (may shower beginning ) Diet: - Resume previous diet SPECIAL CARE INSTRUCTIONS: - May shower on , Sponge bath and wash hair in meantime. On , remove outer dressings and shower. Let water run over area and pat dry. - Leave steri strips on for one week and then remove. They may fall off on their own that is okay. - Call the surgeon's office with any questions or concerns - - (ex. temperature higher than 101 degrees F, excessive bleeding or pain). MEDICATIONS: - Resume previous medications unless instructed otherwise by your surgeon. - May alternate extra strength Tylenol and Ibuprofen as needed for mild to moderate pain -650 mg Tylenol every 6 hours as needed - Ibuprofen 600 mg every 6 hours as needed (take with food) - Percocet 1 every 4 hours, as needed for moderate to severe pain - Recommend daily stool softener (Colace) while taking narcotic pain medication to prevent constipation. FOLLOW UP VISIT: - If not already scheduled, please call the office to schedule a two week follow-up appointment. Office number Pending Studies at Discharge: Yes Stand-Alone Forms: My [employer], Work/School Release, Smoking Cessation Medications and DC Order Prescriptions: New oxycodone-acetaminophen [Percocet] 5-325 mg tablet 1 tab PO Q4H PRN (Reason: pain, moderate) Qty: 10 RF: 0 ondansetron HCl 4 mg tablet 4 mg PO Q6H PRN (Reason: nausea and vomiting) Qty: 15 RF: 0 Continued One-A-Day Women's Complete 18 mg-400 mcg- 25 mcg Tablet 1 tab PO QAM RF: 0 Discharge Orders: Discharge Order (Routine); Ordered 02/26/21 Ordered By: Talita Howe/Other Patient Handouts: Managing Post-Op Pain at Home Admission Data Admit Date/Time: 02/25/21 16:53 Attending Provider: Francisco Summers Admit Provider: Francisco Summers Primary Care Provider: Faith Lo Other Providers: Xiomara Navarro Other Interventions: Discharge Summary Assessment (RN) Last Done: 02/26/21 13:05
== END 2021-02-26 14:19 | disposition home or self-care (01) ==
LOC: ED 10:22 → ASU 14:50 → 3N 14:50